=== PATIENT | female | born 1990 | race African-American/Black ===

== ENCOUNTER 2019-10-20 00:04 | Emergency (ER) | payer MEDICAID ==
[~2019-10-20] VITALS: Ht 144.8 cm; Wt 63.5 kg
[2019-10-20 01:15] LABS: Basophils # (auto) 0.1 uL; Eosinophils # (auto) 0.2 uL; Monocytes # (auto) 0.9 uL; Neutrophils # (auto) 5.4 uL; White Blood Cell 10.6 10^3/uL (4.4-10.8)
[2019-10-20 01:17] LABS: Basophils % (auto) 0.5 % (0.0-2.0); Hematocrit 37.7 % (36.0-46.0); Hemoglobin 12.8 g/dL (12.2-16.2); Lymphocytes % (auto) 38.2 % (10.0-50.0); Mean Corpuscular Hemoglobin 26.3 pg (28.0-32.0); Mean Corpuscular Volume 77.4 fL (80.0-100.0); Monocytes % (auto) 8.7 % (0.0-12.0); Neutrophils % (auto) 50.6 % (37.0-80.0); Nucleated Red Blood Cells % 0.1 %; Platelet Count (auto) 285 10^3/uL (140-450); Red Blood Cells 4.88 10^6/uL (4.0-5.20)
[2019-10-20 01:18] LABS: Red Cell Distribution Width 27.8 % (11.8-14.3)
[2019-10-20 03:24] LABS: Urine Bacteria NONE SEEN /hpf (None Seen); Urine Blood 2+ /uL (Negative); Urine Mucus FEW (None Seen); Urine WBC 1 /hpf (0 - 5)
[2019-10-20] MEDS ORDERED: SODIUM CHLORIDE 0.9% 1,000 ML IV ONE (06:45)
[2019-10-20 10:00] VITALS: BP 102/58
== END 2019-10-20 11:39 | disposition home or self-care (01) ==
LOC: EDBD 00:04 → ER 00:07
DX: O20.0 Threatened abortion (principal); Z3A.01 Less than 8 weeks gestation of pregnancy
CPT/HCPCS: 36415; 76801; 76817; 81001; 84702; 85025